=== PATIENT | male | born 1990 | race Hispanic/Latino ===

== ENCOUNTER 2022-02-02 22:50 | Observation (INO) | payer SELFPAY ==
[~2022-02-02] VITALS: Ht 162.6 cm; Wt 99.8 kg
[2022-02-02] MEDS ORDERED: KETOROLAC TROMETHAMINE 30 MG/ML VIAL IV STA (23:27)
[2022-02-03 00:26] LABS: BASOPHILS % 0.3 % (0.0-1.0); EOSINOPHILS # (AUTO) 0.1 (0.0-0.4); EOSINOPHILS % 0.6 % (0.0-6.0); HEMATOCRIT 49.2 % (38.2-49.6); HEMOGLOBIN 16.6 g/dL (14.0-18.0); LYMPHOCYTES # (AUTO) 2.7 (1.0-3.2); LYMPHOCYTES % 33.9 % (18.0-39.1); MEAN CORPUSCULAR HEMOGLOBIN 31.1 pg (28-32); MEAN CORPUSCULAR HGB CONC 33.7 g/dL (31-35); MEAN CORPUSCULAR VOLUME 92.3 fL (81-99); MONOCYTES # (AUTO) 0.8 (0.2-0.8); MONOCYTES % 10.1 % (4.4-11.3); NEUTROPHILS # (AUTO) 4.3 (2.1-6.9); NEUTROPHILS % 54.3 % (38.7-80.0); PLATELET COUNT 128 x10e3/uL (140-360); RED BLOOD COUNT 5.33 x10e6/uL (4.3-5.7); RED CELL DISTRIBUTION WIDTH 12.4 % (11.7-14.4)
[2022-02-03 00:36] LABS: CLARITY,URINE CLEAR (CLEAR); COLOR,URINE YELLOW (YELLOW); LEUKOCYTE ESTERASE ,URINE NEGATIVE (NEGATIVE)
[2022-02-03 00:37] LABS: EPITHELIAL CELLS,URINE FEW /LPF; KETONES,URINE NEGATIVE (NEGATIVE); NITRITE,URINE NEGATIVE (NEGATIVE); PROTEIN,URINE DIPSTICK NEGATIVE (NEGATIVE); RBC,URINE 0-5 /HPF (0-5); URINE UROBILINOGEN 1 mg/dL (0.2 - 1); WBC,URINE (MAN) 0-5 /HPF (0-5)
[2022-02-03 00:40] LABS: CALCIUM 9.1 mg/dL (8.4-10.2); CREATININE, SERUM 1.01 mg/dL (0.72-1.25)
[2022-02-03 00:46] LABS: AMORPHOUS SEDIMENT,URINE MODERATE (FEW); BACTERIA,URINE MODERATE /HPF; MUCUS,URINE FEW (RARE)
[2022-02-03] MEDS ORDERED: IOPAMIDOL 370 MG/ML 100 ML INFUS..BTL INJ ONE (01:06)
[2022-02-03] MEDS: SODIUM CHLORIDE 0.9% 1000ML 1,000 ML IV SCH ×3 (02:20→19:31)
[2022-02-03] MEDS ORDERED: PIPERACILLIN/TAZOBACTAM 3.375 GM VIAL ONE (02:26)
[2022-02-03] MEDS: ONDANSETRON HCL INJ 2MG/ML 2ML 2 MG/ML VIAL IV PRN ×2 (03:52→19:36)
[2022-02-03] MEDS: Morphine 4mg INJECTION 4 MG/ML INJ IV PRN ×2 (03:52→19:36)
[2022-02-03 06:45] VITALS: BP 121/90
[2022-02-03 08:00] VITALS: BP 121/90
[2022-02-03 11:47] VITALS: BP 113/84
[2022-02-03] MEDS ORDERED: FENTANYL CITRATE/PF 100MCG/2 ML INJ ONE (13:25)
[2022-02-03] MEDS ORDERED: MIDAZOLAM HCL 2 MG/2 ML VIAL ONE (13:25)
[2022-02-03] MEDS ORDERED: ONDANSETRON HCL INJ 2MG/ML 2ML 2 MG/ML VIAL ONE (14:03)
[2022-02-03] MEDS ORDERED: DEXAMETHASONE SOD PHOS INJ 4 MG/ML SDV ONE (14:03)
[2022-02-03] MEDS ORDERED: SEVOFLURANE INHAL SOLN 250 ML PEN BTL ONE (14:03)
[2022-02-03] MEDS ORDERED: PROPOFOL IV EMULSION 10 MG/ML 20 ML VIAL ONE (14:03)
[2022-02-03] MEDS ORDERED: ROCURONIUM BROMIDE 10 MG/ML 5ML VIAL IV ONE (14:03)
[2022-02-03] MEDS ORDERED: LIDOCAINE HCL 2% LOCAL INJ 5 ML SDV VIAL INJ ONE (14:03)
[2022-02-03] MEDS ORDERED: BUPIVACAINE 0.25% 30ML SDV ONE (16:07)
[2022-02-03] MEDS ORDERED: SUGAMMADEX SODIUM 200 MG/2 ML VIAL IV ONE ×2 (16:11→16:54)
[2022-02-03 17:00] VITALS: BP 123/79
[2022-02-03 17:14] VITALS: BP 122/79
[2022-02-03 20:00] VITALS: BP_SYST 122; BP_SYST 124; BP_DIAS 79; BP_DIAS 85
[2022-02-04] VITALS: BP 127/84
[2022-02-04] MEDS: SODIUM CHLORIDE 0.9% 1000ML 1,000 ML IV SCH ×2 (00:41→10:15)
[2022-02-04 04:00] VITALS: BP 118/82
[2022-02-04 04:54] LABS: BASOPHILS % 0.1 % (0.0-1.0); HEMATOCRIT 44.9 % (38.2-49.6); HEMOGLOBIN 15.7 g/dL (14.0-18.0); LYMPHOCYTES # (AUTO) 0.8 (1.0-3.2); LYMPHOCYTES % 8.8 % (18.0-39.1); MONOCYTES # (AUTO) 0.3 (0.2-0.8); MONOCYTES % 3.2 % (4.4-11.3); NEUTROPHILS # (AUTO) 8.2 (2.1-6.9); PLATELET COUNT 133 x10e3/uL (140-360); RED BLOOD COUNT 5.06 x10e6/uL (4.3-5.7); RED CELL DISTRIBUTION WIDTH 12.7 % (11.7-14.4)
[2022-02-04 04:58] LABS: MEAN CORPUSCULAR VOLUME 88.7 fL (81-99)
[2022-02-04 05:21] LABS: ALBUMIN 3.8 g/dL (3.5-5.0); ALBUMIN/GLOBULIN RATIO 1.1 (0.8-2.0); ANION GAP 11.7 mmol/L (8-16); CALCIUM 8.6 mg/dL (8.4-10.2); CREATININE, SERUM 0.79 mg/dL (0.72-1.25); POTASSIUM 4.7 mmol/L (3.5-5.1)
[2022-02-04 08:01] VITALS: BP 117/75
[2022-02-04] MEDS ORDERED: ONDANSETRON HCL 4 MG ORAL DISINTEGRATING TAB PO PRN (08:45)
[2022-02-04 09:19] VITALS: BP 117/75
[2022-02-04 12:07] VITALS: BP 125/83
[2022-02-04] MEDS: Morphine 4mg INJECTION 4 MG/ML INJ IV PRN (13:00)
[2022-02-04] MEDS ORDERED: KEFLEX125 MG/5 M PO (15:13)
[2022-02-04] MEDS ORDERED: TYLENOL 3 PO (15:14)
[2022-02-04] MEDS ORDERED: ONDANSETRON ODT4 MG PO (15:15)
[2022-02-04 16:27] VITALS: BP 118/77
== END 2022-02-04 17:20 | disposition home or self-care (01) ==
LOC: ER 23:12 → INTOOBSV 02-03 02:09 → ERHOLD 02-03 02:09 → MED/SURG 02-03 06:27
PROVIDERS: ADMIT Internal Medicine; ATTEND Internal Medicine
DX: K35.80 Unspecified acute appendicitis (principal); K21.9 Gastro-esophageal reflux disease without esophagitis; Z20.822 Contact with and (suspected) exposure to COVID-19
CPT/HCPCS: 36415 ×2; 44970; 74177; 80048; 80053; 81001; 85025 ×2; 88304; 99284; G0378 ×2; J0690; J1100; J1885; J2001; J2250; J2270 ×2; J2405; J2543 ×2; J2704; J3010; J7030 ×2; Q0162; Q9967; U0002

== ENCOUNTER 2024-09-27 18:13 | Emergency (ER) | payer SELFPAY ==
[~2024-09-27] VITALS: Ht 162.6 cm; Wt 105.3 kg
[~2024-09-27 18:13] MED LIST: KEFLEX125 MG/5 M PO; ONDANSETRON ODT4 MG PO; TYLENOL 3 PO
[2024-09-27 18:18] VITALS: PULSE 87; RESP 20; TEMP 98.8
[2024-09-27] MEDS ORDERED: PANTOPRAZOLE SO40 MG PO (18:36)
[2024-09-27] MEDS ORDERED: MAALOX MAXIMUM355 ML PO (18:36)
[2024-09-27 19:00] VITALS: BP 140/92; PULSE 87; RESP 18; TEMP 98.8; O2SAT 98
== END 2024-09-27 19:00 | disposition home or self-care (01) ==
LOC: FSED 18:18
DX: S39.91XA Unspecified injury of abdomen, initial encounter (principal); G89.11 Acute pain due to trauma; W20.8XXA Other cause of strike by thrown, projected or falling object, initial encounter; Y93.89 Activity, other specified; Y92.9 Unspecified place or not applicable
CPT/HCPCS: 74176; 99283